=== PATIENT | female | born 1935 | race Caucasian/White ===

== ENCOUNTER 2017-04-01 04:41 | Outpatient (CLI) | payer MEDICARE | END 2017-04-01 23:59 | disposition home or self-care (01) | LOC: DIABETIC 04:41 | PROVIDERS: ATTEND Family Medicine | DX: E11.9 Type 2 diabetes mellitus without complications (principal); E78.5 Hyperlipidemia, unspecified | CPT/HCPCS: G0108 ==

== ENCOUNTER 2017-07-01 02:51 | Outpatient (CLI) | payer MEDICARE | END 2017-07-01 23:59 | disposition home or self-care (01) | LOC: DIABETIC 02:51 | PROVIDERS: ATTEND Family Medicine | DX: E11.9 Type 2 diabetes mellitus without complications (principal); E78.5 Hyperlipidemia, unspecified | CPT/HCPCS: G0108 ==

== ENCOUNTER 2017-12-03 00:51 | Outpatient (CLI) | payer MEDICARE | END 2017-12-03 23:59 | disposition home or self-care (01) | LOC: DIABETIC 00:51 | PROVIDERS: ATTEND Family Medicine | DX: E11.9 Type 2 diabetes mellitus without complications (principal); E78.5 Hyperlipidemia, unspecified; Z88.2 Allergy status to sulfonamides; Z88.8 Allergy status to other drugs, medicaments and biological substances | CPT/HCPCS: G0108 ==

== ENCOUNTER 2018-03-12 03:31 | Outpatient (CLI) | payer MEDICARE | END 2018-03-12 23:59 | disposition home or self-care (01) | LOC: DIABETIC 03:31 | PROVIDERS: ATTEND Family Medicine | DX: E11.9 Type 2 diabetes mellitus without complications (principal); E78.5 Hyperlipidemia, unspecified; Z88.2 Allergy status to sulfonamides; Z88.9 Allergy status to unspecified drugs, medicaments and biological substances | CPT/HCPCS: G0108 ==

== ENCOUNTER → 2018-06-10 | Outpatient (CLI) | payer MEDICARE | END | disposition home or self-care (01) | LOC: DIABETIC 04:09 | PROVIDERS: ATTEND Family Medicine | DX: E11.65 Type 2 diabetes mellitus with hyperglycemia (principal); E78.5 Hyperlipidemia, unspecified; Z79.899 Other long term (current) drug therapy; Z88.8 Allergy status to other drugs, medicaments and biological substances | CPT/HCPCS: G0108 ==

== ENCOUNTER 2018-09-16 01:23 | Outpatient (CLI) | payer MEDICARE | END 2018-09-16 23:59 | disposition home or self-care (01) | LOC: DIABETIC 01:23 | PROVIDERS: ATTEND Family Medicine | DX: E11.319 Type 2 diabetes mellitus with unspecified diabetic retinopathy without macular edema (principal); E11.21 Type 2 diabetes mellitus with diabetic nephropathy; E11.59 Type 2 diabetes mellitus with other circulatory complications; E11.43 Type 2 diabetes mellitus with diabetic autonomic (poly)neuropathy; K31.84 Gastroparesis; I10 Essential (primary) hypertension; E78.5 Hyperlipidemia, unspecified; Z79.899 Other long term (current) drug therapy; Z88.2 Allergy status to sulfonamides | CPT/HCPCS: G0108 ==

== ENCOUNTER 2018-12-28 04:09 | Outpatient (CLI) | payer MEDICARE | END 2018-12-28 23:59 | disposition home or self-care (01) | LOC: DIABETIC 04:09 | PROVIDERS: ATTEND Family Medicine | DX: E11.9 Type 2 diabetes mellitus without complications (principal) | CPT/HCPCS: G0108 ==

== ENCOUNTER 2019-04-07 02:02 | Outpatient (CLI) | payer MEDICARE | END 2019-04-07 23:59 | disposition home or self-care (01) | LOC: DIABETIC 02:02 | PROVIDERS: ATTEND Family Medicine | DX: E11.9 Type 2 diabetes mellitus without complications (principal) | CPT/HCPCS: G0108 ==

== ENCOUNTER 2019-07-08 09:23 | Emergency (ER) | payer MEDICARE ==
[~2019-07-08] VITALS: Ht 160 cm; Wt 79.5 kg
[2019-07-08] MEDS ORDERED: HYDROcodone/acetaminophen 5mg/325mg tablet PO ONE (09:55)
[2019-07-08] MEDS ORDERED: LIDOcaine 1% 30ml preserv. free vial SQ STA (10:15)
[2019-07-08] MEDS ORDERED: propofol 10mg/ml 20ml vial IV ONE (11:15)
[2019-07-08] MEDS ORDERED: ketamine 50 mg/ml 10ml vial IV ONE (11:30)
[2019-07-08 14:04] VITALS: BP 144/58
[2019-07-08] MEDS ORDERED: HYDR-3965 PO (14:14)
== END 2019-07-08 14:41 | disposition home or self-care (01) ==
LOC: ER 09:24
DX: S43.005A Unspecified dislocation of left shoulder joint, initial encounter (principal); S09.90XA Unspecified injury of head, initial encounter; I12.9 Hypertensive chronic kidney disease with stage 1 through stage 4 chronic kidney disease, or unspecified chronic kidney disease; E11.22 Type 2 diabetes mellitus with diabetic chronic kidney disease; N18.9 Chronic kidney disease, unspecified; Z88.2 Allergy status to sulfonamides; Z88.8 Allergy status to other drugs, medicaments and biological substances; W01.0XXA Fall on same level from slipping, tripping and stumbling without subsequent striking against object, initial encounter; Y93.89 Activity, other specified; Y92.480 Sidewalk as the place of occurrence of the external cause; Y99.8 Other external cause status
CPT/HCPCS: 23650; 70450; 73020; 73030; 73070; 99152; 99285

== ENCOUNTER 2021-01-24 09:10 | Day surgery (SDC) | payer MEDICARE ==
[2021-01-23 11:59] LABS: BASOPHILS # (AUTO) 0.1 X10'3 (0-0.2); BASOPHILS % (AUTO) 0.8 % (0-1); EOSINOPHILS # (AUTO) 0.3 X10'3 (0-0.9); HEMATOCRIT 30.3 % (35.0-45.0); HEMOGLOBIN 10.3 g/dl (12.0-16.0); LYMPHOCYTES # (AUTO) 1.8 X10'3 (1.1-4.8); LYMPHOCYTES % (AUTO) 21.3 % (21-51); MEAN CORPUSCULAR HEMOGLOBIN 32.3 PG (27.0-31.0); MEAN CORPUSCULAR HGB CONC 34.1 g/dL (33.0-36.5); MEAN CORPUSCULAR VOLUME 94.6 FL (78-98); MEAN PLATELET VOLUME 7.9 FL (7.4-10.4); MONOCYTES # (AUTO) 0.8 X10'3 (0-0.9); MONOCYTES % (AUTO) 9.3 % (2-12); NEUTROPHILS # (AUTO) 5.5 X10'3 (1.8-7.7); NEUTROPHILS % (AUTO) 65.6 % (42-75); PLATELET COUNT 258 X10'3 (140-440); RED CELL DISTRIBUTION WIDTH 12.9 % (11.5-14.5); WHITE BLOOD COUNT 8.4 X10'3 (4.5-11.0)
[2021-01-23 12:07] LABS: ALBUMIN 3.8 G/DL (3.4-5.0); BLOOD UREA NITROGEN 48 MG/DL (7-18); CALCIUM 8.7 MG/DL (8.5-10.1); CHLORIDE 101 MMOL/L (99-107); GLUCOSE 102 MG/DL (70-104); POTASSIUM 4.3 MMOL/L (3.5-5.1)
[2021-01-23 12:08] LABS: PARTIAL THROMBOPLASTIN TIME 28 SECONDS (22-32)
[2021-01-23 12:10] LABS: ANION GAP 10 (8-16); BUN/CREATININE RATIO 26.1 (6.6-38.0); CREATININE 1.84 MG/DL (0.40-0.90); SODIUM 138 MMOL/L (135-145); eGFR 26 ML/MIN
[~2021-01-24] VITALS: Ht 152.4 cm; Wt 76.7 kg
[2021-01-24] VITALS (10 sets, daily range): BP systolic 123–197; BP diastolic 47–83
[2021-01-24] MEDS ORDERED: iohexol 350MG/ML 100ml bottle IV ONE (09:18)
[2021-01-24] MEDS ORDERED: LIDOcaine 1% (10mg/ml)w/preservative injection 20ml MDV ONE (09:18)
[2021-01-24] MEDS ORDERED: iohexol 350 MG/ML 50ML vial IV ONE (09:18)
[2021-01-24] MEDS ORDERED: verapamil 2.5 mg/ml inj IV ONE (09:18)
[2021-01-24] MEDS ORDERED: heparin 1,000unit/ml 10ml vial 10 ML ONE (09:18)
[2021-01-24] MEDS ORDERED: midazolam 1 mg/ML 2ml injection ONE (09:18)
[2021-01-24] MEDS ORDERED: nitroGLYCERIN-Tridil 50MG/D5W 250 ML IV ONE (09:18)
[2021-01-24] MEDS ORDERED: fentaNYL/PF 50MCG/1 ML 2ML syringe ONE (09:18)
[2021-01-24] MEDS ORDERED: sodium bicarbonate (8.4%) inj. 150 ML in dextrose 5%-water 1,000 ML IV ONE (09:35)
[2021-01-24] MEDS ORDERED: diphenhydrAMINE 25mg capsule PO PRN (09:35)
[2021-01-24] MEDS ORDERED: LIDOcaine/PRILOcaine 5gm cream TP ONE (09:35)
[2021-01-24] MEDS ORDERED: LORazepam 0.5 MG tablet PO PRN (09:35)
[2021-01-24] MEDS ORDERED: normal saline 1,000 ML IV SCH (09:35)
[2021-01-24] MEDS: acetylcysteine 200 MG/ml 4ml vial PO PRN ×2 (10:12→13:06)
[2021-01-24] MEDS ORDERED: LATA2.5D14 EACHEYE (10:17)
[2021-01-24] MEDS ORDERED: NITR0.4T48 (10:17)
[2021-01-24] MEDS ORDERED: SACU1TAB7 PO (10:17)
[2021-01-24] MEDS ORDERED: LEVO50TA8 PO (10:17)
[2021-01-24] MEDS ORDERED: CARV-50 PO (10:17)
[2021-01-24] MEDS ORDERED: FURO20TA4 PO (10:17)
[2021-01-24] MEDS ORDERED: UBID100C16 PO (10:17)
[2021-01-24] MEDS ORDERED: GLIP5TAB13 PO (10:17)
[2021-01-24] MEDS ORDERED: CHOL50004 PO (10:17)
[2021-01-24] MEDS ORDERED: ASPI81TA52 PO (10:17)
[2021-01-24] MEDS ORDERED: ATOR20TA66 PO (10:17)
[2021-01-24] MEDS ORDERED: FEBU40TA3 PO (10:19)
[2021-01-24] MEDS ORDERED: sodium bicarbonate (8.4%) inj. 150 MEQ in dextrose 5%-water 1,000 ML IV SCH (12:45)
== END 2021-01-24 17:00 | disposition home or self-care (01) ==
LOC: SSTAY O 09:10
PROVIDERS: ATTEND Internal Medicine Cardiovascular Disease
DX: R53.83 Other fatigue (principal); R06.02 Shortness of breath; I25.10 Atherosclerotic heart disease of native coronary artery without angina pectoris; I08.3 Combined rheumatic disorders of mitral, aortic and tricuspid valves; E78.5 Hyperlipidemia, unspecified; I44.7 Left bundle-branch block, unspecified; I42.0 Dilated cardiomyopathy; I12.9 Hypertensive chronic kidney disease with stage 1 through stage 4 chronic kidney disease, or unspecified chronic kidney disease; N18.9 Chronic kidney disease, unspecified; I50.9 Heart failure, unspecified; G47.33 Obstructive sleep apnea (adult) (pediatric); D64.9 Anemia, unspecified; E87.5 Hyperkalemia; E55.9 Vitamin D deficiency, unspecified; K21.9 Gastro-esophageal reflux disease without esophagitis; M10.9 Gout, unspecified; M19.90 Unspecified osteoarthritis, unspecified site; F32.9 Major depressive disorder, single episode, unspecified; I65.22 Occlusion and stenosis of left carotid artery; F41.9 Anxiety disorder, unspecified; E11.39 Type 2 diabetes mellitus with other diabetic ophthalmic complication; H40.9 Unspecified glaucoma; Z98.890 Other specified postprocedural states; Z90.710 Acquired absence of both cervix and uterus; Z98.41 Cataract extraction status, right eye; Z98.42 Cataract extraction status, left eye; Z79.84 Long term (current) use of oral hypoglycemic drugs; Z79.899 Other long term (current) drug therapy; Z88.2 Allergy status to sulfonamides; Z88.8 Allergy status to other drugs, medicaments and biological substances; Z82.49 Family history of ischemic heart disease and other diseases of the circulatory system; Z80.1 Family history of malignant neoplasm of trachea, bronchus and lung
CPT/HCPCS: 36415; 76937; 80048; 82948; 85025; 85610; 85730; 93005; 93460; 99152; 99153; C1751; C1769; C1894; J1644; J2250; J3010; J3490; J7030; J7070; Q0163; Q9967; A4620; A5120; A6258